=== PATIENT | male | born 1975 | race Caucasian/White ===

== ENCOUNTER 2017-08-31 12:59 | Inpatient (IN) | payer SELFPAY ==
[~2017-08-31] VITALS: Ht 157.5 cm; Wt 92.8 kg
[2017-08-31] MEDS ORDERED: SODIUM CHLORIDE 0.9% 1,000 ML IV ONE (13:17)
[2017-08-31] MEDS ORDERED: LEVETIRACETAM 500MG PREMIX 100 ML IV ONE (13:45)
[2017-08-31 13:57] LABS: BG BASE EXCESS -7.2 mmol/L (-2.0-2.0); BG CARBOXYHEMOGLOBIN 0.7 % (0.5-1.5); BG DEOXYHEMOGLOBIN 1.2 % (0.0-5.0); BG FRACTION INSPIRED OXYGEN 99.8; BG HCO3 ACT 19.7 mmol/L (22.0-26.0); BG METHEMOGLOBIN 0.2 % (0.0-1.5); BG OXYGEN SATURATION 98.8 % (92.0-98.5); BG OXYHEMOGLOBIN 97.9 % (94.0-97.0); BG PCO2 44.5 mmHg (35.0-45.0); BG PH 7.263 (7.350-7.450); BG PO2 180.3 mmHg (75.0-100.0); BG SAMPLE SITE RIGHT BRACHIAL; BG TOTAL HEMOGLOBIN 13.2 g/dL (12.0-18.0); BG VENT MODE MASK - NRB
[2017-08-31] MEDS ORDERED: LORAZEPAM 2MG/ML CPJ IV ONE ×3 (14:30→16:15)
[2017-08-31 14:34] LABS: CHLORIDE 101 mEq/L (98-107)
[2017-08-31 14:35] LABS: BASOPHILS % 0.2 % (0.0-2.0); EOSINOPHILS % 0.2 % (0.0-5.0); HEMATOCRIT. 39.9 % (42.0-52.0); HEMOGLOBIN. 13.1 g/dL (14.0-18.0); MEAN CORPUSCULAR HEMOGLOBIN 26.9 pg (28.0-32.0); MEAN CORPUSCULAR VOLUME 82.2 fL (80.0-94.0); MEAN PLATELET VOLUME 7.3 fl (7.4-10.4); MONOCYTES % 6.2 % (2.0-8.0); NEUTROPHILS % 83.4 % (40.0-76.0); PLATELET 198 x1000/uL (130-400); RED BLOOD CELL COUNT 4.86 mill/uL (4.7-6.1); RED CELL DISTRIBUTION WIDTH 13.7 % (11.6-14.6)
[2017-08-31 14:37] LABS: D-DIMER 2.14 mg/L FEU (<0.50); PROTHROMBIN TIME 10.6 sec (9.4-11.6)
[2017-08-31 14:39] LABS: ETHANOL BLOOD < 10 mg/dL
[2017-08-31 14:42] LABS: AMMONIA < 25 uMol/L (<32)
[2017-08-31 14:49] LABS: CREATINE KINASE 318 IU/L (39-308)
[2017-08-31 14:52] LABS: CARBAMAZEPINE < 0.5 ug/mL (4-12); PHENOBARBITAL < 2.1 ug/mL (15.0-40.0)
[2017-08-31] MEDS ORDERED: DEXT 10% WATER 1,000 ML IV ONE (14:59)
[2017-08-31] MEDS ORDERED: DEXTROSE 50% WATER 50ML SYRINGE IV ONE (15:00)
[2017-08-31] MEDS ORDERED: ZIPRASIDONE MESYLATE 20MG/VIAL IM ONE (16:15)
[2017-08-31] MEDS ORDERED: GUAIFENESIN 200MG/10ML SUGAR FREE UDC PO PRN (16:45)
[2017-08-31] MEDS ORDERED: MAGNESIUM/ALUMINUM HYDROXIDE/SIMETHICONE 30ML UDC PO PRN (16:45)
[2017-08-31] MEDS ORDERED: DIPHENHYDRAMINE 50MG/ML VIAL IV PRN (16:45)
[2017-08-31] MEDS ORDERED: ACETAMINOPHEN 325MG TABLET PO PRN (16:45)
[2017-08-31] MEDS ORDERED: IPRATROPIUM/ALBUTEROL 0.5-3(2.5)MG/3ML NEB INH PRN (16:45)
[2017-08-31] MEDS ORDERED: ONDANSETRON HCL 4MG/2ML VIAL IV PRN (16:45)
[2017-08-31] MEDS ORDERED: DOCUSATE SODIUM 100MG CAPSULE PO PRN (16:45)
[2017-08-31] MEDS ORDERED: CLONIDINE 0.1MG TABLET PO PRN (16:45)
[2017-08-31] MEDS ORDERED: LORAZEPAM 2MG/ML CPJ IM ONE (17:45)
[2017-08-31 22:39] LABS: CHLORIDE 95 mEq/L (98-107)
[2017-08-31 22:49] LABS: TROPONIN I < 0.02 ng/mL (0.00-0.04)
[2017-08-31 23:00] VITALS: BP 116/75
[2017-08-31] MEDS ORDERED: LORAZEPAM 0.5MG TABLET PO PRN (23:00)
[2017-08-31] MEDS ORDERED: NA PHOS,M-B/NA PHOS,DI-BA ENEMA 118ML PR PRN (23:00)
[2017-08-31] MEDS ORDERED: MORPHINE SULFATE 4 MG/ML CPJ (NOT FOR IM USE) IV PRN (23:00)
[2017-08-31] MEDS ORDERED: HYDROCODONE/ACETAMINOPHEN 5/325MG TABLET PO PRN (23:00)
[2017-08-31] MEDS ORDERED: ASPI-1159 PO (23:46)
[2017-08-31] MEDS ORDERED: GLIM4TAB2 PO (23:46)
[2017-08-31] MEDS ORDERED: ATOR20TA65 PO (23:46)
[2017-08-31] MEDS ORDERED: PIOG30TA10 PO (23:46)
[2017-08-31] MEDS ORDERED: DIPH-684 PO (23:46)
[2017-08-31] MEDS ORDERED: METF850T2 PO (23:46)
[2017-08-31] MEDS ORDERED: LISI10TA5 PO (23:46)
[2017-09-01] MEDS ORDERED: DEXTROSE 50% WATER 50ML SYRINGE IV PRN
[2017-09-01] MEDS: DEXT 5%/0.45% NACL 1000ML 1,000 ML IV SCH ×2 (00:04→12:31)
[2017-09-01] MEDS ORDERED: MIDAZOLAM HCL 2 MG/2 ML VIAL IV PRN (00:45)
[2017-09-01] MEDS ORDERED: ZIPRASIDONE MESYLATE 20MG/VIAL IM PRN (01:00)
[2017-09-01 04:00] VITALS: BP 101/60
[2017-09-01] MEDS: BLOOD SUGAR DIAGNOSTIC STRIP TEST SCH ×4 (05:45→20:38)
[2017-09-01] MEDS: INSULIN LISPRO 100 UNITS/ML SUBCUT SCH ×4 (05:45→20:38)
[2017-09-01] MEDS ORDERED: PNEUMOCOCCAL 23-VAL P-SAC VAC 0.5 ML IM ONE (06:00)
[2017-09-01 07:45] VITALS: BP 107/66
[2017-09-01 08:26] LABS: BASOPHILS % 0.3 % (0.0-2.0); EOSINOPHILS % 0.1 % (0.0-5.0); HEMATOCRIT. 36.8 % (42.0-52.0); HEMOGLOBIN. 12.3 g/dL (14.0-18.0); LYMPHOCYTES % 22.5 % (20.0-50.0); MEAN CORPUSCULAR HEMOGLOBIN 26.8 pg (28.0-32.0); MEAN CORPUSCULAR VOLUME 80.4 fL (80.0-94.0); MEAN PLATELET VOLUME 7.4 fl (7.4-10.4); NEUTROPHILS % 69.1 % (40.0-76.0); PLATELET 192 x1000/uL (130-400); RED BLOOD CELL COUNT 4.58 mill/uL (4.7-6.1); RED CELL DISTRIBUTION WIDTH 13.4 % (11.6-14.6)
[2017-09-01 08:58] LABS: CHLORIDE 98 mEq/L (98-107)
[2017-09-01 09:16] LABS: HDL CHOLESTEROL 49 mg/dL (40-59); LDL CHOLESTEROL 55 mg/dL (5-100); TROPONIN I < 0.02 ng/mL (0.00-0.04)
[2017-09-01] MEDS: ASPIRIN 81MG EC TABLET PO SCH (09:37)
[2017-09-01] MEDS: ENOXAPARIN 30MG/0.3ML SYR SUBCUT SCH ×2 (09:38→20:38)
[2017-09-01] MEDS: LISINOPRIL 10MG TABLET PO SCH (09:38)
[2017-09-01] MEDS ORDERED: POTASSIUM CHLORIDE 20MEQ TABLET SR PO SCH (10:00)
[2017-09-01 12:49] VITALS: BP 112/69
[2017-09-01 16:00] VITALS: BP 111/71
[2017-09-01 16:49] LABS: CREATINE KINASE 1223 IU/L (39-308); TROPONIN I < 0.02 ng/mL (0.00-0.04)
[2017-09-01 20:00] VITALS: BP 103/65
[2017-09-01] MEDS ORDERED: ATORVASTATIN CALCIUM 20MG TABLET PO SCH (21:00)
[2017-09-02] VITALS: BP 100/55
[2017-09-02 00:22] LABS: CREATINE KINASE 1059 IU/L (39-308); CREATINE KINASE MB FRACTION 2.6 ng/mL (0.5-3.6); TROPONIN I < 0.02 ng/mL (0.00-0.04)
[2017-09-02] MEDS: DEXT 5%/0.45% NACL 1000ML 1,000 ML IV SCH (02:45)
[2017-09-02 04:00] VITALS: BP 114/69
[2017-09-02] MEDS: INSULIN LISPRO 100 UNITS/ML SUBCUT SCH ×2 (06:14→12:15)
[2017-09-02] MEDS: BLOOD SUGAR DIAGNOSTIC STRIP TEST SCH ×2 (06:14→12:18)
[2017-09-02 07:25] LABS: CREATINE KINASE 950 IU/L (39-308); CREATINE KINASE MB FRACTION 1.5 ng/mL (0.5-3.6); TROPONIN I < 0.02 ng/mL (0.00-0.04)
[2017-09-02 08:00] VITALS: BP 118/80
[2017-09-02] MEDS: LISINOPRIL 10MG TABLET PO SCH (08:53)
[2017-09-02] MEDS: ENOXAPARIN 30MG/0.3ML SYR SUBCUT SCH (08:53)
[2017-09-02] MEDS: ASPIRIN 81MG EC TABLET PO SCH (08:53)
[2017-09-02 14:12] VITALS: BP_DIAS 112
== END 2017-09-02 15:21 | disposition home or self-care (01) | DRG 53 ==
LOC: ER 13:15 → 5WST 14:49 → EDBEDREQ 14:51 → ENRESERV 19:41 → 5WST 23:46
PROVIDERS: ADMIT Internal Medicine; ATTEND Internal Medicine
DX: G40.409 Other generalized epilepsy and epileptic syndromes, not intractable, without status epilepticus (principal); G93.41 Metabolic encephalopathy; E11.649 Type 2 diabetes mellitus with hypoglycemia without coma; F41.9 Anxiety disorder, unspecified; E86.0 Dehydration; G47.00 Insomnia, unspecified; Z79.82 Long term (current) use of aspirin; Z79.84 Long term (current) use of oral hypoglycemic drugs; Z79.899 Other long term (current) drug therapy
CPT/HCPCS: 36415; 36600; 70450; 71045; 80048; 80053; 80061; 80156; 80165; 80184; 80185; 82140; 82375; 82550; 82553; 82805; 82962; 83036; 83605; 83880; 84439; 84443; 84484; 85025; 85379; 85610; 90732; 93005; 93306; 93970; 96361; 96372; 96374; 96375; 96376; 99285; G0482; J1650; J1953; J2060; J3486; J7030